=== PATIENT | female | born 1990 | race Caucasian/White ===

== ENCOUNTER 2016-06-22 10:23 | Emergency (ER) | payer MEDICAID ==
[~2016-06-22] VITALS: Ht 175.3 cm; Wt 95.5 kg
[~2016-06-22 10:23] MED LIST: ABILIFY5 MG PO; AMOXICILLIN 50500 MG PO; AMOXICILLIN 8751 TAB PO; BENADRYL25 M2 PO; DOXYCYCLINE 10100 MG PO; ELIMITE TOP; HYDROCORT CREAM1% TOP; IBU800 M1 PO; NORCO 325 MG-51 TAB PO; PERCOCET 325 MG1 TA2 PO; PROZAC40 MG PO; ULTRAM 50MG TAB50 MG PO; VALTREX 50500 MG/TAB PO; VALTREX1 GM PO
[2016-06-22 10:26] VITALS: BP 120/49; TEMP 98.7
[2016-06-22 11:20] VITALS: PULSE 80
== END 2016-06-22 11:21 | disposition home or self-care (01) ==
LOC: COL.ER 10:23
DX: Z71.1 Person with feared health complaint in whom no diagnosis is made (principal)

== ENCOUNTER 2017-04-29 13:28 | Emergency (ER) | payer SELFPAY ==
[~2017-04-29] VITALS: Ht 175.3 cm; Wt 104.5 kg
[2017-04-29 13:29] VITALS: TEMP 97.9
[2017-04-29 15:07] VITALS: BP 108/74; PULSE 78
== END 2017-04-29 15:09 | disposition home or self-care (01) ==
LOC: COL.ER 13:28
DX: G43.909 Migraine, unspecified, not intractable, without status migrainosus (principal); F32.9 Major depressive disorder, single episode, unspecified; F17.210 Nicotine dependence, cigarettes, uncomplicated; Z90.89 Acquired absence of other organs
CPT/HCPCS: J1200; J1885; J2765; J7030

== ENCOUNTER 2017-07-05 21:48 | Emergency (ER) | payer SELFPAY ==
[~2017-07-05] VITALS: Ht 175.3 cm; Wt 104.5 kg
[2017-07-05 21:55] VITALS: BP 150/72; TEMP 98.4
[2017-07-05 22:51] VITALS: PULSE 97
== END 2017-07-05 22:51 | disposition home or self-care (01) ==
LOC: COL.ER 21:48
DX: S90.32XA Contusion of left foot, initial encounter (principal); V03.90XA Pedestrian on foot injured in collision with car, pick-up truck or van, unspecified whether traffic or nontraffic accident, initial encounter; Y92.009 Unspecified place in unspecified non-institutional (private) residence as the place of occurrence of the external cause

== ENCOUNTER 2017-12-01 15:17 | Emergency (ER) | payer SELFPAY ==
[~2017-12-01] VITALS: Ht 175.3 cm; Wt 103.9 kg
[2017-12-01 15:26] VITALS: BP 143/60; PULSE 100; TEMP 98.8
== END 2017-12-01 16:25 | disposition home or self-care (01) ==
LOC: COL.ER 15:17
DX: S60.221A Contusion of right hand, initial encounter (principal); S60.812A Abrasion of left wrist, initial encounter; W23.0XXA Caught, crushed, jammed, or pinched between moving objects, initial encounter; Z87.891 Personal history of nicotine dependence

== ENCOUNTER 2018-03-25 03:14 | Emergency (ER) | payer SELFPAY ==
[~2018-03-25] VITALS: Ht 175.3 cm; Wt 100.0 kg
[2018-03-25 03:19] VITALS: BP 151/82; TEMP 98
[2018-03-25] MEDS ORDERED: COUMADIN 6MG6 MG/TAB PO (03:45)
[2018-03-25] MEDS ORDERED: PRAVACHOL10 MG (04:07)
[2018-03-25] MEDS ORDERED: AMITRIPTYLINE H10 M1 (04:07)
[2018-03-25] MEDS ORDERED: VALTREX 50500 MG/TAB (04:08)
[2018-03-25] MEDS ORDERED: PEPCID 20MG TAB20 MG (04:08)
[2018-03-25 04:10] LABS: INR 1.3 (0.8-3.0); PROTHROMBIN TIME 15.3 SECONDS (9.7-12.8)
[2018-03-25 04:30] VITALS: PULSE 74
== END 2018-03-25 04:30 | disposition home or self-care (01) ==
LOC: COL.ER 03:14
PROVIDERS: Emergency Medicine
DX: S09.90XA Unspecified injury of head, initial encounter (principal); E78.5 Hyperlipidemia, unspecified; K21.9 Gastro-esophageal reflux disease without esophagitis; E66.9 Obesity, unspecified; Z79.01 Long term (current) use of anticoagulants; Z86.73 Personal history of transient ischemic attack (TIA), and cerebral infarction without residual deficits; W20.8XXA Other cause of strike by thrown, projected or falling object, initial encounter; Y92.009 Unspecified place in unspecified non-institutional (private) residence as the place of occurrence of the external cause

== ENCOUNTER 2019-06-02 22:58 | Emergency (ER) | payer SELFPAY ==
[~2019-06-02] VITALS: Ht 175.3 cm; Wt 79.0 kg
[~2019-06-02 22:58] MED LIST changes: +AMITRIPTYLINE H10 M1; +COUMADIN 6MG6 MG/TAB PO; +PEPCID 20MG TAB20 MG; +PRAVACHOL10 MG; +VALTREX 50500 MG/TAB
[2019-06-02 23:00] VITALS: TEMP 98
[2019-06-02 23:34] LABS: BASO # 0.1 (0.0-0.2); BASO % 0.6 % (0.0-2.0); EOS # 0.1 (0.0-0.7); EOS % 1.4 % (0-4.0); GRAN # 5.6 (1.4-6.5); GRAN % 59.3 % (42.2-75.2); HEMATOCRIT 42.5 % (37.0-47.0); HEMOGLOBIN 14.3 g/dl (12.5-16.0); LYMPH % 32.1 % (20.0-51.0); MEAN CELL VOLUME 93 fl (80.0-100.0); MEAN CORPUSCULAR HEMOGLOBIN 31 pg (27.0-31.0); MEAN CORPUSCULAR HGB CONC 34 g/dl (33.0-37.0); MEAN PLATELET VOLUME 9.7 fl (7.4-10.4); MONO # 0.6 (0.1-0.6); MONO % 6.3 % (1.7-9.3); PLATELET COUNT 346 K/mm3 (130-400); RED BLOOD COUNT 4.56 M/mm3 (4.10-5.30); REDCELL DISTRIBUTION WIDTH-CV 11.7 % (11.5-14.5)
[2019-06-02 23:42] LABS: ALANINE AMINOTRANSFERASE 20 U/L (9-52); ALBUMIN 4.2 gm/dL (3.5-5.0); ALKALINE PHOSPHATASE 74 U/L (50-136); ANION GAP 13 mmol/L (7-16); AST,SGOT 19 U/L (15-37); BILIRUBIN,TOTAL 0.2 mg/dL (0.0-1.0); BLOOD UREA NITROGEN 11 mg/dL (7-17); CALCIUM 9.3 mg/dL (8.4-10.2); CARBON DIOXIDE 22 mmol/L (22-30); CHLORIDE 110 mmol/L (98-107); CREATINE KINASE 28 U/L (30-135); CREATININE, serum 0.59 (0.52-1.25); GLUCOSE 87 mg/dL (74-106); POTASSIUM 3.7 mmol/L (3.4-5.0); SODIUM 145 mmol/L (137-145); TOTAL PROTEIN 7.2 gm/dL (6.4-8.2)
[2019-06-03 00:05] LABS: TROPONIN-I < 0.012 ng/mL (0.000-0.035)
[2019-06-03 00:09] LABS: COLLECTION METHOD CLEAN CATCH
[2019-06-03 00:43] LABS: MUCOUS Present /lpf; PH 5 (5-8); SQUAMOUS EPITHELIAL 20-50 /hpf; URINE APPEARANCE Cloudy; URINE BACTERIA None Seen /hpf; URINE BILIRUBIN Negative (NEGATIVE); URINE BLOOD Negative (NEGATIVE); URINE COLOR Yellow; URINE GLUCOSE Negative (NEGATIVE); URINE KETONE Negative (NEGATIVE); URINE LEUKOCYTE ESTERASE 1+ (NEGATIVE); URINE NITRATE Negative (NEGATIVE); URINE PROTEIN(semi-quant) 2+ (NEGATIVE); URINE RBC 20-50 /hpf; URINE UROBILINOGEN Negative (NEGATIVE)
[2019-06-03] MEDS ORDERED: PYRIDIUM200 M1 PO (00:48)
[2019-06-03] MEDS ORDERED: CEFTIN500 MG PO (00:48)
[2019-06-03 01:00] VITALS: BP 116/70; PULSE 88
== END 2019-06-03 01:16 | disposition home or self-care (01) ==
LOC: COL.ER 22:58
PROVIDERS: Emergency Medicine
DX: S30.0XXA Contusion of lower back and pelvis, initial encounter (principal); N39.0 Urinary tract infection, site not specified; R55 Syncope and collapse; F17.210 Nicotine dependence, cigarettes, uncomplicated; Z90.89 Acquired absence of other organs; W19.XXXA Unspecified fall, initial encounter
CPT/HCPCS: J7030